=== PATIENT | female | born 1985 ===

== ENCOUNTER → 2018-12-25 22:03 | Outpatient (REF) | payer OTHER, SELFPAY ==
[2018-12-25 23:10] LABS: Free T4, Direct Thyroxine 1.05 ng/dL (0.78-2.19)
[2018-12-25 23:24] LABS: Thyroid Stimulating Hormone 1.85 uIU/mL (0.47-4.68)
[2018-12-28 15:06] LABS: Triiodothyronine T3 Total 110 ng/dL (76-181)
== END ==
LOC: LAB 22:03
PROVIDERS: Visit Provider Family Medicine
DX: R68.82 Decreased libido (principal); N94.19 Other specified dyspareunia
CPT/HCPCS: 36415; 82627; 84402; 84403; 84439; 84443; 84480